=== PATIENT | male | born 1980 | race Caucasian/White ===

== ENCOUNTER 2020-03-02 17:47 | Inpatient (IN) | payer MEDICAID, OTHER ==
[~2020-03-02] VITALS: Ht 165.1 cm; Wt 65.4 kg
[~2020-03-02 17:47] MED LIST: ACET325T14 PO; ONDA4TAB10 PO; ONDA4TAB7 PO; OXYC5TAB3 PO; TRAM-47 PO
--- NOTE | 2020-03-02 18:04 | NUR ---
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
[2020-03-02] MEDS ORDERED: ONDANSETRON 2MG/ML, 2ML ONE (18:08)
[2020-03-02] MEDS ORDERED: LORazepam 2 MG/ML, 1ML ONE (18:09)
[2020-03-02] MEDS ORDERED: FAMOTIDINE 20 MG/2 ML ONE (18:09)
--- NOTE | 2020-03-02 18:14 | NUR ---
MEDICATED PER ENMAR WITH FAMOTIDINE/ADDITIONAL ZOFRAN/1MG ATIVAN (LAST DRINK TYSTER) AND 1L NS (1L LITER OF NS FROM EMS COMPLETE)
--- NOTE | 2020-03-02 18:20 | NUR ---
lab at bedside
[2020-03-02] MEDS ORDERED: MORPHINE SULFATE 4 MG/ML, 1ML ONE ×2 (18:27→18:55)
[2020-03-02] MEDS ORDERED: ONDANSETRON 2MG/ML, 2ML IVPush ONE (18:30)
[2020-03-02] MEDS ORDERED: LORazepam 2 MG/ML, 1ML IVPush ONE (18:30)
[2020-03-02] MEDS ORDERED: SODIUM CHLORIDE 0.9% 1,000ML IVBOLUS ONE ×2 (18:30→19:30)
[2020-03-02] MEDS ORDERED: FAMOTIDINE 20 MG/2 ML IVPush ONE (18:30)
--- NOTE | 2020-03-02 18:30 | NUR ---
Large coffe ground emesis noted-provider made aware lucian (sharon [phone] Medicated per emar for llq/throat pain
[2020-03-02] MEDS: MORPHINE SULFATE 4 MG/ML, 1ML IVPush PRN ×2 (18:35→19:01)
--- NOTE | 2020-03-02 18:47 | NUR ---
Pain/tachypnea not improved with prior medications-provider made aware Repeat fsbs after 1.5 liters remains "high"
[2020-03-02 18:58] LABS: CHLORIDE 65 mmol/L (98-107)
[2020-03-02] MEDS ORDERED: MORPHINE SULFATE 4 MG/ML, 1ML IVPush PRN (19:00)
[2020-03-02 19:03] LABS: BASOPHILS # (AUTO) 0.08 x10^3/uL (0-0.1); BASOPHILS % (AUTO) 1 % (0-1); EOSINOPHILS # (AUTO) 0.01 x10^3/uL (0-0.4); EOSINOPHILS % (AUTO) 0 % (1-7); LYMPHOCYTES # (AUTO) 0.56 x10^3/uL (1-3.4); LYMPHOCYTES % (AUTO) 7 % (22-44); MD SCAN; MEAN CORPUSCULAR VOLUME 89.9 fL (81-97); MONOCYTES # (AUTO) 1.51 x10^3/uL (0.2-0.8); MONOCYTES % (AUTO) 18 % (2-9); NEUTROPHILS # (AUTO) 6.38 x10^3/uL (1.8-6.8); NEUTROPHILS % (AUTO) 75 % (42-75); PLATELET COUNT 155 x10^3/uL (130-400); RED BLOOD COUNT 4.77 x10^6/uL (4.38-5.82); RED CELL DISTRIBUTION WIDTH 14.9 % (9.4-14.8)
--- NOTE | 2020-03-02 19:03 | NUR ---
TASK RN: PT MEDICATED PER MAR FOR PAIN 5 RIGHTS VERIFIED.
--- NOTE | 2020-03-02 19:05 | NUR ---
with reassessment-morphine ineffective-pain remains 03/13 provider made aware
[2020-03-02 19:06] LABS: ANION GAP 42 mmol/L (5-15)
[2020-03-02 19:08] LABS: CALCIUM 6.6 mg/dL (8.5-10.1); CREATININE 3.85 mg/dL (0.7-1.3)
[2020-03-02 19:09] LABS: ALANINE AMINOTRANSFERASE 230 U/L (12-78); ALBUMIN 3.1 g/dL (3.4-5.0); ALKALINE PHOSPHATASE 168 U/L (45-117); BILIRUBIN,TOTAL 2.5 mg/dL (0.2-1.0); TROPONIN I 0.046 ng/mL (0.000-0.045)
--- NOTE | 2020-03-02 19:24 | NUR ---
sodium 112, co2-5, glucose 1513 provider made aware- orders forthcoming
[2020-03-02] MEDS: METOCLOPRAMIDE 5 MG/ML, 2ML IVPush ONE ×2 (19:30→20:33)
[2020-03-02] MEDS ORDERED: LACTATED RINGERS 1,000 ML IVBOLUS ONE (19:30)
--- NOTE | 2020-03-02 19:38 | NUR ---
3L OF NS ADMINISTERED PER EMAR INSULIN GTT ORDERED FROM PHARMACY RADIOLOGY AT BEDSIDE
--- NOTE | 2020-03-02 19:59 | NUR ---
insulin gtt started at 7.1 units/hr (patient weight 71kg-bed weight) verified by Liliana RICHARDS 3l of ns complete, lr administered per emar
[2020-03-02] MEDS: REGULAR INSULIN 100 UNITS in SODIUM CHLORIDE 0.9% 99 ML IV PRN (20:02)
[2020-03-02] MEDS ORDERED: SODIUM CHLORIDE 0.9% 1,000 ML IV ONE (20:12)
[2020-03-02] MEDS ORDERED: METOCLOPRAMIDE 5 MG/ML, 2ML ONE (20:16)
--- NOTE | 2020-03-02 20:49 | NUR ---
when directed on need to void as bladder scan 650ml and has received 4l of fluids patient only able to void 75ml-sample sent provider to be made aware shortly
--- NOTE | 2020-03-02 20:56 | NUR ---
BS REPORT FROM KAYCE RICHARDS. PT CARE TRANSFERRED AT THIS TIME.
--- NOTE | 2020-03-02 21:05 | NUR ---
FSBS RECHECK "HIGH" LAB MADE AWARE OF NEED FOR [facility] ICU HOSPITAL BED ORDERED PATIENT TO BE A HOLD PROVIDER ORDER FOR FERGUSON FOR I/O'S AND INABILITY TO VOID REPORT TO ELLIOTT RICHARDS
[2020-03-02 21:09] LABS: MICROSCOPIC INDICATED
[2020-03-02] MEDS ORDERED: REGULAR INSULIN 100 UNITS in SODIUM CHLORIDE 0.9% 99 ML IV PRN (21:26)
[2020-03-02] MEDS: SODIUM CHLORIDE 0.9% 1,000 ML IV SCH (21:26)
[2020-03-02] MEDS ORDERED: ONDANSETRON 2MG/ML, 2ML IV PRN (21:30)
[2020-03-02] MEDS ORDERED: PHARMACY MAY ADJ FOR RENAL FX MC PRN (21:30)
[2020-03-02] MEDS ORDERED: LACTULOSE 10 GM/15 ML UDC PO PRN (21:30)
[2020-03-02] MEDS ORDERED: LABETALOL 5MG/ML, 20ML IVPush PRN (21:30)
[2020-03-02] MEDS ORDERED: THIAMINE 200 MG in SODIUM CHLORIDE 0.9% 50 ML IV ONE (21:30)
--- NOTE | 2020-03-02 21:37 | NUR ---
FERGUSON PLACED, PT TOLERATED WELL. PT ANOx1 TO SELF AT THIS TIME. PT RESPIRATIONS SLIGHTLY FAST, SLOWED DUE TO PREVIOUS MEDICATION ADMINISTRATION. PT RESTING IN GURNEY, AROUSABLE TO PAIN STIMULI OR LOUD NOISES, PT WILL OPEN EYES AND THEN CLOSE THEM AGAIN AND BRIEFLY RESPOND. PT BLOOD SUGAR ORDERED THROUGH LAB RESULTS WERE TOO HIGH FOR GLUCOMETER. PT VSS AT THIS TIME. JIGNESH DO AT BS FOR EVAL AND POC. WCTM. WAITING FOR CCU BED
[2020-03-02 21:59] LABS: INTERNATIONAL NORMALIZED RATIO 1.36 (0.93-1.1); PROTHROMBIN TIME 14.5 Seconds (9.6-11.5)
[2020-03-02] MEDS ORDERED: CALCIUM GLUCONATE 4.6 MEQ in SODIUM CHLORIDE 0.9% 50 ML IV ONE ×2 (22:00→22:30)
[2020-03-02] MEDS ORDERED: SODIUM BICARB 8.4%, 50ML SYRINGE ONE (22:00)
[2020-03-02] MEDS ORDERED: PANTOPRAZOLE 40 MG IV ONE (22:01)
[2020-03-02] MEDS: SODIUM BICARB 8.4%, 50ML SYRINGE IV ONE ×2 (22:10→23:00)
[2020-03-02] MEDS: PANTOPRAZOLE 40 MG IV IVPush SCH (22:26)
--- NOTE | 2020-03-02 22:48 | NUR ---
RN CONSULTED WITH JIGNESH DELANEY, INSULIN DRIP INCREASED BY 3 UNITS/HOUR DUE TO MINIMAL DROP IN BLOOD SUGAR. SUGAR USED 1210, DRIP CHANGE VERIFIED WITH ASHWIN RICHARDS. US AT BS. PT TOELRATING WELL. WCTM.
[2020-03-02] MEDS: D5%-0.45NACL+KCL 20MEQ 1,000 ML IV SCH (23:00)
[2020-03-02 23:07] LABS: ACETONE, SERUM Large (80mg/dL) (Negative)
--- NOTE | 2020-03-02 23:14 | NUR ---
PT RESTING IN [facility] LAB AT FOR DRAW. PT ANOx4 AT THIS TIME. MORE EASILY WOKEN UP BUT STILL DROWSY. WCTM. WAITING FOR CCU BED.
[2020-03-03] MEDS ORDERED: MORPHINE SULFATE 4 MG/ML, 1ML ONE (00:14)
[2020-03-03 00:22] LABS: ANION GAP 16 mmol/L (5-15); CALCIUM 7.8 mg/dL (8.5-10.1); CHLORIDE 89 mmol/L (98-107); CREATININE 2.77 mg/dL (0.7-1.3)
[2020-03-03 00:26] LABS: TROPONIN I 0.057 ng/mL (0.000-0.045)
[2020-03-03 00:31] LABS: AMPHETAMINE SCREEN, URINE Negative (Negative); BARBITURATE SCREEN, URINE Negative (Negative); BENZODIAZEPINE SCREEN, URINE Negative (Negative); CANNABINOID SCREEN, URINE Negative (Negative); COCAINE SCREEN, URINE Negative (Negative); METHADONE SCREEN, URINE Negative (Negative); OPIATE SCREEN, URINE Positive (Negative)
--- NOTE | 2020-03-03 00:40 | NUR ---
PT MEDICATED PER MAR FOR PAIN. PT NOW RESTING, APPEARS COMFORTABLE. SEIZURE PRECAUTION IN PLACE. VSS, WCTM. WAITING FOR CCU BED.
--- NOTE | 2020-03-03 01:21 | NUR ---
BS REPORT TO NIKKI RICHARDS. PT CONDITION UNCHANGED OTHER THAN PAIN DECREASED.
--- NOTE | 2020-03-03 01:30 | NUR ---
PATIENT RESTING IN BED, TOLERATING INTERVENTIONS WELL. NO NOTED FURTHER NEEDS AT THIS TIME. WILL CONTINUE TO MONITOR. VITAL SIGNS STABLE.
[2020-03-03] MEDS: SODIUM CHLORIDE 0.9% 1,000 ML IV SCH ×4 (01:39→23:35)
--- NOTE | 2020-03-03 01:40 | NUR ---
GLUCOSE DRAWN AND SENT TO LAB.
[2020-03-03] MEDS ORDERED: POTASSIUM CHLORIDE 40 MEQ in SODIUM CHLORIDE 0.9% 500 ML IV ONE (02:00)
[2020-03-03] MEDS ORDERED: CEFTRIAXONE PMX 1GM/50ML 50 ML IV SCH (02:00)
--- NOTE | 2020-03-03 02:30 | NUR ---
INSULIN DRIP TITRATE PER PROTOCOL. VSS, NO NOTED NEEDS AT THIS TIME. WILL CONTINUE TO MONITOR.
[2020-03-03] MEDS: REGULAR INSULIN 100 UNITS in SODIUM CHLORIDE 0.9% 99 ML IV PRN ×2 (02:32→05:49)
--- NOTE | 2020-03-03 03:00 | NUR ---
LABS DRAWN: PATIENT TOLERATED WELL
--- NOTE | 2020-03-03 04:00 | NUR ---
INSULIN DRIP TITRATE PER PROTOCOL. VSS, NO NOTED NEEDS AT THIS TIME. WILL CONTINUE TO MONITOR.
[2020-03-03 04:35] LABS: ALANINE AMINOTRANSFERASE 274 U/L (12-78); ALBUMIN 3.1 g/dL (3.4-5.0); ANION GAP 11 mmol/L (5-15); CALCIUM 7.9 mg/dL (8.5-10.1); CHLORIDE 99 mmol/L (98-107)
[2020-03-03 04:40] LABS: ALKALINE PHOSPHATASE 153 U/L (45-117); BILIRUBIN,TOTAL 2.3 mg/dL (0.2-1.0); CREATININE 2.03 mg/dL (0.7-1.3); TOTAL PROTEIN 6.8 g/dL (6.4-8.2); TROPONIN I 0.057 ng/mL (0.000-0.045)
[2020-03-03 04:41] LABS: MEAN CORPUSCULAR HEMOGLOBIN 26.8 pg (27.5-34.5); MEAN CORPUSCULAR HGB CONC 33.4 g/dL (33.2-36.2); MEAN CORPUSCULAR VOLUME 80.3 fL (81-97); RED BLOOD COUNT 4.86 x10^6/uL (4.38-5.82); RED CELL DISTRIBUTION WIDTH 14.3 % (9.4-14.8)
--- NOTE | 2020-03-03 04:48 | NUR ---
PATIENT ABLE TO HAVE BLOOD GLUCOSE CHECKED VIA GLUCOMETER, BLOOD SUGAR IS BELOW 500 CARMEN. WILL CONTINUE BLOOD GLUCOSE CHECKS HOURLY VIA GLUCOMETER.
--- NOTE | 2020-03-03 04:50 | NUR ---
INSULIN DRIP TITRATE PER PROTOCOL. VSS, NO NOTED NEEDS AT THIS TIME. WILL CONTINUE TO MONITOR.
--- NOTE | 2020-03-03 05:10 | NUR ---
NO CHANGE IN INSULIN DRIP PER PROTOCOL. VSS, NO NOTED NEEDS AT THIS TIME. WILL CONTINUE TO MONITOR.
[2020-03-03] MEDS: D5%-0.45NACL+KCL 20MEQ 1,000 ML IV SCH (05:26)
[2020-03-03] MEDS ORDERED: PANTOPRAZOLE 40 MG IV ONE (06:00)
[2020-03-03] MEDS: PANTOPRAZOLE 40 MG IV IVPush SCH ×2 (06:00→15:55)
--- NOTE | 2020-03-03 06:10 | NUR ---
NO CHANGE IN INSULIN DRIP RATE. PATIENT DENIES ANY NEEDS AT THIS TIME. VITAL SIGNS STABLE. WILL CONTINUE TO MONITOR. IV PROTONIX GIVEN, PATIENT TOLERATED WELL.
[2020-03-03 06:12] LABS: MEAN PLATELET VOLUME 8.4 fL (7.4-10.4); PLATELET COUNT 83 x10^3/uL (130-400)
[2020-03-03 06:14] LABS: MD YES
[2020-03-03 06:19] LABS: BAND#(MANUAL) 0.33 x10^3/uL; BANDS%(MANUAL) 6 % (0-7); LYMPH#(MANUAL) 0.11 x10^3/uL (1-3.4); LYMPHS% (MANUAL) 2 % (22-44); MONOS#(MANUAL) 0.22 x10^3/uL (0.3-2.7); MONOS% (MANUAL) 4 % (2-9); SEG#(MANUAL) 4.84 x10^3/uL (1.8-6.8); SEGS% (MANUAL) 88 % (42-75)
[2020-03-03 06:20] LABS: <PLATELET ESTIMATE> DECREASED; <PLT MORPHOLOGY> NORMAL PLT MORPH; <RBC MORPHOLOGY> NORMAL
--- NOTE | 2020-03-03 06:40 | NUR ---
CALLED MD NAVARRO TO REPORT AM LABS. NO FURTHER ORDERS AT THIS TIME.
--- NOTE | 2020-03-03 06:57 | NUR ---
report given to oncoming rn scooter
[2020-03-03] MEDS ORDERED: POTASSIUM CHLORIDE 20 MEQ TAB.ER.PRT PO ONE (07:00)
[2020-03-03] MEDS ORDERED: INSULIN LISPRO 100 UNITS/ML, PEN SQ-INSULIN SCH (07:00)
--- NOTE | 2020-03-03 07:00 | NUR ---
BEDSIDE REPORT RECEIVED, CARE ASSUMED. PT LAYING ON HOSPITAL BED, SLEEPING, AROUSES TO NAME. SR PER MONITOR. CONT WITH OXYGEN AT 5L NC. NS AT 200MLS/HR AND INSULIN GTT AT 4.1 UNITS/HR INFUSING WITHOUT REDNESS/SWELLING. FERGUSON TO DOWN DRAIN, CLEAR YELLOW URINE. NO NEEDS VERBALIZED AT THIS TIME. AWAITING ROOM ASSIGNMENT.
--- NOTE | 2020-03-03 07:23 | NUR ---
PT REMOVES OXYGEN AT TIMES, DESATS TO 83%. PT COOPERATIVE WITH PLACING O2 BACK ON.
--- NOTE | 2020-03-03 07:31 | NUR ---
NEW ORDERS RECEIVED. PT INSULIN GTT STOPPED. REQUESTED HUMALOG AND LANTUS PENS FROM PHARMACY. REQUEST CLEAR LIQUID DIET FROM DIETARY.
[2020-03-03] MEDS ORDERED: POTASSIUM CHLORIDE 20 MEQ TAB.ER.PRT ONE (07:42)
[2020-03-03] MEDS ORDERED: INSULIN GLARGINE 100 UNITS/ML, PEN SQ-INSULIN SCH (09:00)
--- NOTE | 2020-03-03 09:14 | NUR ---
REPORT TO KAYCE RICHARDS
--- NOTE | 2020-03-03 09:18 | NUR ---
BEDSIDE REPORT FROM LYDIA RN WITH ASSESSMENT PATIENT APPEARS WELL-VSS ON AERIAL INSTALLER DR. THAKUR TO BEDSIDE- VERBAL ORDERS RECEIVED TO REMOVE FERGUSON
[2020-03-03] MEDS ORDERED: LORazepam 2 MG/ML, 1ML IVPush PRN (11:00)
--- NOTE | 2020-03-03 11:19 | NUR ---
With reassessment- patient remains in no acute distress Prior to clear liquid meal tray delivery fsbs rechecked: 288 VSS-updated on poc
[2020-03-03] MEDS: INSULIN LISPRO 100 UNITS/ML, PEN SQ-INSULIN SCH ×3 (11:26→21:35)
--- NOTE | 2020-03-03 11:26 | NUR ---
medicated with 15 units of sq lispro for fsbs of 288. dose verified by scooter cline Provided with lunch meal tray. encouraged to eat
--- NOTE | 2020-03-03 11:36 | NUR ---
[place] catheter removed. urimeter with 100ml of c/y urine in it
--- NOTE | 2020-03-03 11:55 | NUR ---
attempted to wean o2 (on 5l nc) room air sat to 70's with good waveform. o2 adjusted to 3l nc- will cont to monitor family updated on estimated poc
--- NOTE | 2020-03-03 12:10 | NUR ---
to ct scan (head)
--- NOTE | 2020-03-03 12:30 | NUR ---
REPORT CALLED TO FILEMON RICHARDS-MADE AWARE THAT PATIENT HAS NOT VOIDED SINCE CATH REMOVAL FAMILY CALLED TO UPDATE POC (AFTER PERMISSION GRANTED FROM PATIENT)
[2020-03-03 13:05] VITALS: BP 139/91
[2020-03-03 18:23] VITALS: BP 139/87
[2020-03-03] MEDS: INSULIN GLARGINE 100 UNITS/ML, PEN SQ-INSULIN SCH (21:35)
[2020-03-03] MEDS: THIAMINE 200 MG in SODIUM CHLORIDE 0.9% 50 ML IV SCH (21:36)
[2020-03-03] MEDS ORDERED: THIAMINE 100 MG in SODIUM CHLORIDE 0.9% 50 ML IV SCH (22:00)
[2020-03-03] MEDS ORDERED: METOCLOPRAMIDE 5 MG/ML, 2ML IVPush ONE (23:00)
[2020-03-03] MEDS ORDERED: DIPHENHYDRAMINE 50 MG/ML, 1ML IVPush ONE (23:00)
[2020-03-04 00:57] VITALS: BP 133/80
[2020-03-04] MEDS ORDERED: CEFTRIAXONE 1,000 MG IM SCH (03:00)
[2020-03-04 04:04] LABS: ANION GAP 15 mmol/L (5-15); CALCIUM 8.2 mg/dL (8.5-10.1); CHLORIDE 100 mmol/L (98-107); CREATININE 0.76 mg/dL (0.7-1.3)
[2020-03-04 04:07] LABS: MEAN CORPUSCULAR HEMOGLOBIN 26.7 pg (27.5-34.5); MEAN CORPUSCULAR HGB CONC 32.9 g/dL (33.2-36.2); MEAN CORPUSCULAR VOLUME 81.1 fL (81-97); MEAN PLATELET VOLUME 9.9 fL (7.4-10.4); PLATELET COUNT 86 x10^3/uL (130-400); RED BLOOD COUNT 4.49 x10^6/uL (4.38-5.82); RED CELL DISTRIBUTION WIDTH 15.3 % (9.4-14.8)
[2020-03-04] MEDS ORDERED: CEFTRIAXONE PMX 1GM/50ML 50 ML IV SCH (05:00)
[2020-03-04 05:10] LABS: MD YES
[2020-03-04 05:14] LABS: BAND#(MANUAL) 1.08 x10^3/uL; BANDS%(MANUAL) 15 % (0-7); EOS#(MANUAL) 0.14 x10^3/uL (0.0-0.4); EOS% (MANUAL) 2 % (1-7); LYMPH#(MANUAL) 1.44 x10^3/uL (1-3.4); LYMPHS% (MANUAL) 20 % (22-44); METAMYELOCYTES# (MANUAL) 0.14 x10^3/uL (0-0); METAMYELOCYTES% (MANUAL) 2 % (0-1); MONOS#(MANUAL) 0.14 x10^3/uL (0.3-2.7); MONOS% (MANUAL) 2 % (2-9); MYELOCYTES# (MANUAL) 0.07 x10^3/uL (0-0); MYELOCYTES% (MANUAL) 1 % (0-0); REACTIVE LYMPHS # (MANUAL) 0.07 x10^3/uL (0-0); REACTIVE LYMPHS % (MANUAL) 1 % (0-0); SEGS% (MANUAL) 57 % (42-75)
[2020-03-04 05:15] LABS: <PLATELET ESTIMATE> DECREASED; <PLT MORPHOLOGY> NORMAL PLT MORPH; <RBC MORPHOLOGY> NORMAL
[2020-03-04] MEDS: PANTOPRAZOLE 40 MG IV IVPush SCH ×2 (05:24→18:11)
[2020-03-04 06:41] VITALS: BP 128/76
[2020-03-04] MEDS: INSULIN LISPRO 100 UNITS/ML, PEN SQ-INSULIN SCH ×4 (07:00→21:42)
[2020-03-04] MEDS: SODIUM CHLORIDE 0.9% 1,000 ML IV SCH ×2 (08:00→21:43)
[2020-03-04] MEDS: INSULIN GLARGINE 100 UNITS/ML, PEN SQ-INSULIN SCH ×2 (09:00→21:42)
[2020-03-04] MEDS: POTASSIUM CHLORIDE 20 MEQ TAB.ER.PRT PO SCH (11:22)
[2020-03-04] MEDS: AMPICILLIN/SULBACTAM 3 GM in SODIUM CHLORIDE 0.9% 100 ML IV SCH ×3 (11:23→21:42)
[2020-03-04 13:50] VITALS: BP 134/79
[2020-03-04] MEDS: OXYcodone/APAP 5/325MG TABLET PO PRN (21:43)
[2020-03-04] MEDS: THIAMINE 200 MG in SODIUM CHLORIDE 0.9% 50 ML IV SCH (22:21)
[2020-03-04 22:38] VITALS: BP 120/78
[2020-03-05 01:49] VITALS: BP 115/73
[2020-03-05] MEDS: AMPICILLIN/SULBACTAM 3 GM in SODIUM CHLORIDE 0.9% 100 ML IV SCH ×3 (03:42→18:03)
[2020-03-05] MEDS: PANTOPRAZOLE 40 MG IV IVPush SCH ×2 (06:04→16:42)
[2020-03-05] MEDS: SODIUM CHLORIDE 0.9% 1,000 ML IV SCH ×2 (06:05→18:23)
[2020-03-05 06:49] VITALS: BP 106/69
[2020-03-05] MEDS: INSULIN LISPRO 100 UNITS/ML, PEN SQ-INSULIN SCH ×4 (07:00→20:27)
[2020-03-05] MEDS ORDERED: SINCALIDE (KINEVAC) 5 MCG ONE ×2 (08:31→08:32)
[2020-03-05] MEDS: POTASSIUM CHLORIDE 20 MEQ TAB.ER.PRT PO SCH (09:38)
[2020-03-05] MEDS: INSULIN GLARGINE 100 UNITS/ML, PEN SQ-INSULIN SCH ×2 (09:39→20:26)
[2020-03-05 14:03] VITALS: BP 113/69
[2020-03-05] MEDS: OXYcodone/APAP 5/325MG TABLET PO PRN ×2 (15:42→20:11)
[2020-03-05 19:51] VITALS: BP 115/74
[2020-03-05] MEDS: THIAMINE 200 MG in SODIUM CHLORIDE 0.9% 50 ML IV SCH (22:58)
[2020-03-06] MEDS: AMPICILLIN/SULBACTAM 3 GM in SODIUM CHLORIDE 0.9% 100 ML IV SCH ×4 (00:38→17:41)
[2020-03-06] MEDS: OXYcodone/APAP 5/325MG TABLET PO PRN ×5 (00:38→23:08)
[2020-03-06 00:47] VITALS: BP 121/80
[2020-03-06] MEDS: SODIUM CHLORIDE 0.9% 1,000 ML IV SCH ×2 (03:25→12:30)
[2020-03-06 04:50] LABS: BASOPHILS # (AUTO) 0.02 x10^3/uL (0-0.1); BASOPHILS % (AUTO) 0 % (0-1); EOSINOPHILS # (AUTO) 0.22 x10^3/uL (0-0.4); EOSINOPHILS % (AUTO) 4 % (1-7); LYMPHOCYTES # (AUTO) 1.42 x10^3/uL (1-3.4); LYMPHOCYTES % (AUTO) 25 % (22-44); MD NO; MEAN CORPUSCULAR HEMOGLOBIN 26.7 pg (27.5-34.5); MEAN CORPUSCULAR HGB CONC 32.9 g/dL (33.2-36.2); MEAN CORPUSCULAR VOLUME 81.2 fL (81-97); MEAN PLATELET VOLUME 8.3 fL (7.4-10.4); MONOCYTES # (AUTO) 0.57 x10^3/uL (0.2-0.8); MONOCYTES % (AUTO) 10 % (2-9); NEUTROPHILS # (AUTO) 3.44 x10^3/uL (1.8-6.8); NEUTROPHILS % (AUTO) 61 % (42-75); PLATELET COUNT 154 x10^3/uL (130-400); RED BLOOD COUNT 4.27 x10^6/uL (4.38-5.82); RED CELL DISTRIBUTION WIDTH 15.5 % (9.4-14.8)
[2020-03-06 04:56] LABS: ANION GAP 9 mmol/L (5-15); CALCIUM 7.7 mg/dL (8.5-10.1); CHLORIDE 105 mmol/L (98-107); CREATININE 0.65 mg/dL (0.7-1.3)
[2020-03-06] MEDS: PANTOPRAZOLE 40 MG IV IVPush SCH ×2 (06:10→17:41)
[2020-03-06 06:36] VITALS: BP 120/79
[2020-03-06] MEDS: POTASSIUM CHLORIDE 20 MEQ TAB.ER.PRT PO SCH (08:16)
[2020-03-06] MEDS: INSULIN LISPRO 100 UNITS/ML, PEN SQ-INSULIN SCH ×4 (09:41→21:37)
[2020-03-06] MEDS: INSULIN GLARGINE 100 UNITS/ML, PEN SQ-INSULIN SCH ×2 (09:41→21:37)
[2020-03-06 12:25] VITALS: BP 120/80
[2020-03-06 21:02] VITALS: BP 120/77
[2020-03-06] MEDS: THIAMINE 200 MG in SODIUM CHLORIDE 0.9% 50 ML IV SCH (21:38)
[2020-03-06 23:56] VITALS: BP 122/80
[2020-03-07] MEDS: AMPICILLIN/SULBACTAM 3 GM in SODIUM CHLORIDE 0.9% 100 ML IV SCH ×4 (00:06→19:40)
[2020-03-07] MEDS: OXYcodone/APAP 5/325MG TABLET PO PRN ×4 (03:45→22:39)
[2020-03-07 06:08] LABS: BASOPHILS # (AUTO) 0.02 x10^3/uL (0-0.1); BASOPHILS % (AUTO) 1 % (0-1); EOSINOPHILS # (AUTO) 0.15 x10^3/uL (0-0.4); EOSINOPHILS % (AUTO) 3 % (1-7); LYMPHOCYTES % (AUTO) 28 % (22-44); MD NO; MEAN CORPUSCULAR HEMOGLOBIN 26.7 pg (27.5-34.5); MEAN CORPUSCULAR VOLUME 80.9 fL (81-97); MEAN PLATELET VOLUME 7.9 fL (7.4-10.4); MONOCYTES # (AUTO) 0.85 x10^3/uL (0.2-0.8); MONOCYTES % (AUTO) 17 % (2-9); NEUTROPHILS # (AUTO) 2.67 x10^3/uL (1.8-6.8); NEUTROPHILS % (AUTO) 52 % (42-75); PLATELET COUNT 204 x10^3/uL (130-400); RED BLOOD COUNT 4.43 x10^6/uL (4.38-5.82); RED CELL DISTRIBUTION WIDTH 15.5 % (9.4-14.8)
[2020-03-07 06:29] LABS: HCT (SEDRATE) 35.9 % (39.2-51.8)
[2020-03-07] MEDS: PANTOPRAZOLE 40 MG IV IVPush SCH ×2 (06:32→16:48)
[2020-03-07 06:45] LABS: ANION GAP 8 mmol/L (5-15); CALCIUM 8.3 mg/dL (8.5-10.1); CHLORIDE 102 mmol/L (98-107); CREATININE 0.71 mg/dL (0.7-1.3)
[2020-03-07] MEDS ORDERED: POTASSIUM CHLORIDE 40 MEQ in SODIUM CHLORIDE 0.9% 500 ML IV ONE (07:00)
[2020-03-07 07:03] VITALS: BP 119/78
[2020-03-07] MEDS: POTASSIUM CHLORIDE 20 MEQ TAB.ER.PRT PO SCH (08:21)
[2020-03-07] MEDS: INSULIN LISPRO 100 UNITS/ML, PEN SQ-INSULIN SCH ×4 (08:23→19:56)
[2020-03-07] MEDS: INSULIN GLARGINE 100 UNITS/ML, PEN SQ-INSULIN SCH ×2 (08:23→19:56)
[2020-03-07 13:05] VITALS: BP 119/79
[2020-03-07] MEDS ORDERED: METF-649 PO (17:54)
[2020-03-07] MEDS ORDERED: GLIP5TAB10 PO (17:54)
[2020-03-07 19:33] VITALS: BP 121/75
[2020-03-07] MEDS: THIAMINE 200 MG in SODIUM CHLORIDE 0.9% 50 ML IV SCH (22:39)
[2020-03-08] MEDS: AMPICILLIN/SULBACTAM 3 GM in SODIUM CHLORIDE 0.9% 100 ML IV SCH ×3 (01:47→14:30)
[2020-03-08 01:56] VITALS: BP 106/68
[2020-03-08] MEDS: OXYcodone/APAP 5/325MG TABLET PO PRN ×2 (03:21→10:41)
[2020-03-08 05:21] LABS: BASOPHILS # (AUTO) 0.04 x10^3/uL (0-0.1); BASOPHILS % (AUTO) 1 % (0-1); EOSINOPHILS # (AUTO) 0.16 x10^3/uL (0-0.4); EOSINOPHILS % (AUTO) 3 % (1-7); LYMPHOCYTES # (AUTO) 1.47 x10^3/uL (1-3.4); LYMPHOCYTES % (AUTO) 31 % (22-44); MD NO; MEAN CORPUSCULAR HEMOGLOBIN 26.6 pg (27.5-34.5); MEAN CORPUSCULAR HGB CONC 32.6 g/dL (33.2-36.2); MEAN CORPUSCULAR VOLUME 81.6 fL (81-97); MEAN PLATELET VOLUME 7.9 fL (7.4-10.4); MONOCYTES % (AUTO) 19 % (2-9); NEUTROPHILS # (AUTO) 2.26 x10^3/uL (1.8-6.8); NEUTROPHILS % (AUTO) 47 % (42-75); PLATELET COUNT 290 x10^3/uL (130-400); RED BLOOD COUNT 4.47 x10^6/uL (4.38-5.82); RED CELL DISTRIBUTION WIDTH 16.2 % (9.4-14.8)
[2020-03-08 05:30] LABS: ANION GAP 7 mmol/L (5-15); CALCIUM 8.7 mg/dL (8.5-10.1); CHLORIDE 106 mmol/L (98-107)
[2020-03-08] MEDS ORDERED: PANTOPRAZOLE 40MG TABLET PO SCH (06:00)
[2020-03-08] MEDS: INSULIN LISPRO 100 UNITS/ML, PEN SQ-INSULIN SCH ×2 (07:00→12:38)
[2020-03-08 07:29] VITALS: BP 97/60
[2020-03-08] MEDS ORDERED: POTASSIUM CHLORIDE 40 MEQ in SODIUM CHLORIDE 0.9% 500 ML IV ONE (09:00)
[2020-03-08] MEDS: INSULIN GLARGINE 100 UNITS/ML, PEN SQ-INSULIN SCH (10:41)
[2020-03-08] MEDS: POTASSIUM CHLORIDE 20 MEQ TAB.ER.PRT PO SCH (10:41)
[2020-03-08] MEDS ORDERED: FOLI-17 PO (11:08)
[2020-03-08] MEDS ORDERED: THIA100T52 PO (11:08)
[2020-03-08] MEDS ORDERED: PANT40TA3 PO (11:08)
[2020-03-08] MEDS ORDERED: CEFD300C37 PO (11:09)
[2020-03-08 15:10] VITALS: BP 116/71
== END 2020-03-08 17:30 | disposition home or self-care (01) | DRG 637 ==
LOC: ED 20:05 → EDIP 20:13 → ED 20:40 → 3N 03-03 13:27 → DCLOUNGE 03-08 17:10
PROVIDERS: ADMIT Family Medicine; ATTEND Hospitalist
DX: E10.10 Type 1 diabetes mellitus with ketoacidosis without coma (principal); I21.4 Non-ST elevation (NSTEMI) myocardial infarction; K85.20 Alcohol induced acute pancreatitis without necrosis or infection; G93.41 Metabolic encephalopathy; J96.01 Acute respiratory failure with hypoxia; N17.0 Acute kidney failure with tubular necrosis; K92.0 Hematemesis; E87.1 Hypo-osmolality and hyponatremia; F10.239 Alcohol dependence with withdrawal, unspecified; K86.1 Other chronic pancreatitis; M62.82 Rhabdomyolysis; D50.9 Iron deficiency anemia, unspecified; E83.51 Hypocalcemia; E86.0 Dehydration; E87.5 Hyperkalemia; K29.20 Alcoholic gastritis without bleeding; Z91.14 Patient's other noncompliance with medication regimen
CPT/HCPCS: 36415; 36600; 84145; J3490; 70450; 71045; 76700; 78227; 80048; 80053; 80074; 80307; 81001; 82010; 82140; 82330; 82550; 82728; 82803; 82947; 82962; 83036; 83540; 83550; 83605; 83690; 83735; 84100; 84484; 85014; 85018; 85025; 85610; 85651; 85730; 86140; 87040; 87086; 87147; 87181; 93005; G0378; J0295; J0610; J0696; J1815; J2405; J3411; J3480; A9537; C9113; J1200; J2060; J2270; J2765; J2805; J7030; J7040; J7120

== ENCOUNTER 2020-04-13 01:54 | Inpatient (IN) | payer MEDICAID ==
[~2020-04-13] VITALS: Ht 165.1 cm; Wt 66.9 kg
[~2020-04-13 01:54] MED LIST changes: +CEFD300C37 PO; +FOLI-17 PO; +GLIP5TAB10 PO; +METF-649 PO; +PANT40TA3 PO; +THIA100T52 PO
[2020-04-13] MEDS ORDERED: SODIUM CHLORIDE 0.9% 1,000ML IVBOLUS ONE ×3 (02:30→04:00)
[2020-04-13] MEDS ORDERED: SODIUM CHLORIDE FLUSH 10ML SYR IVF ONE (02:30)
[2020-04-13] MEDS ORDERED: ONDANSETRON 2MG/ML, 2ML IVPush ONE (02:30)
[2020-04-13 02:46] LABS: MEAN CORPUSCULAR HEMOGLOBIN 26.6 pg (27.5-34.5); MEAN CORPUSCULAR HGB CONC 31.3 g/dL (33.2-36.2); MEAN CORPUSCULAR VOLUME 84.8 fL (81-97); MEAN PLATELET VOLUME 11.3 fL (7.4-10.4); PLATELET COUNT 472 x10^3/uL (130-400); RED CELL DISTRIBUTION WIDTH 17.1 % (9.4-14.8)
--- NOTE | 2020-04-13 02:48 | NUR ---
INTURPRETER IN USE. PT UPDATED IN POC. IV ACCESS OBTAINED. PT LAYING IN BED, CONNECTED TO BABY DOCTOR, BP AND O2 MONITORS.
[2020-04-13] MEDS ORDERED: ONDANSETRON 2MG/ML, 2ML ONE (02:56)
[2020-04-13 03:20] LABS: TROPONIN I < 0.015 ng/mL (0.000-0.045)
[2020-04-13 03:28] LABS: ALANINE AMINOTRANSFERASE 25 U/L (12-78); ANION GAP 33 mmol/L (5-15); CALCIUM 8.3 mg/dL (8.5-10.1); CHLORIDE 94 mmol/L (98-107); CREATININE 2.81 mg/dL (0.7-1.3)
[2020-04-13 03:30] LABS: BASOPHILS # (AUTO) 0.04 x10^3/uL (0-0.1); BASOPHILS % (AUTO) 0 % (0-1); EOSINOPHILS # (AUTO) 0.01 x10^3/uL (0-0.4); EOSINOPHILS % (AUTO) 0 % (1-7); LYMPHOCYTES # (AUTO) 0.81 x10^3/uL (1-3.4); LYMPHOCYTES % (AUTO) 5 % (22-44); MD SCAN; MONOCYTES # (AUTO) 0.61 x10^3/uL (0.2-0.8); MONOCYTES % (AUTO) 4 % (2-9); NEUTROPHILS # (AUTO) 14.82 x10^3/uL (1.8-6.8); NEUTROPHILS % (AUTO) 91 % (42-75)
[2020-04-13 03:31] LABS: ALKALINE PHOSPHATASE 210 U/L (45-117); BILIRUBIN,TOTAL 0.6 mg/dL (0.2-1.0); TOTAL PROTEIN 9.3 g/dL (6.4-8.2)
[2020-04-13 03:35] LABS: ACETONE, SERUM Large (80mg/dL) (Negative)
--- NOTE | 2020-04-13 03:41 | NUR ---
PT LAYING IN BED, CALL LIGHT IN REACH, RESPIRATIONS HAVE SLOWED, PT ASKING FOR ICE CHIPS, WILL ASK PROVIDER AND CONTINUE TO MONITOR.
[2020-04-13] MEDS ORDERED: REGULAR INSULIN 100 UNITS in SODIUM CHLORIDE 0.9% 99 ML IV PRN (03:42)
[2020-04-13] MEDS: D5%-0.45NACL+KCL 20MEQ 1,000 ML IV SCH ×3 (03:54→21:04)
[2020-04-13] MEDS: SODIUM CHLORIDE 0.9% 1,000 ML IV SCH ×5 (03:54→23:54)
[2020-04-13] MEDS ORDERED: LACTATED RINGERS 1,000 ML IVBOLUS ONE (04:00)
[2020-04-13] MEDS ORDERED: ACETAMINOPHEN 325 MG TABLET PO PRN (04:00)
[2020-04-13] MEDS ORDERED: ONDANSETRON 2MG/ML, 2ML IVPush PRN ×2 (04:00)
[2020-04-13] MEDS ORDERED: MORPHINE SULFATE 4 MG/ML, 1ML IVPush PRN ×2 (04:00)
[2020-04-13] MEDS ORDERED: GLUCAGON 1 MG IM PRN (04:00)
[2020-04-13] MEDS ORDERED: DEXTROSE 4 GM TAB.CHEW PO PRN (04:00)
[2020-04-13] MEDS ORDERED: DOCUSATE 100 MG CAPSULE PO PRN (04:00)
[2020-04-13] MEDS ORDERED: DEXTROSE 50%, 50ML SYRINGE IVPush PRN (04:00)
[2020-04-13] MEDS ORDERED: morphine SULFATE 10 MG/ML, 1ML IVPush PRN (04:00)
[2020-04-13] MEDS ORDERED: hydrALAzine 20 MG/ML, 1ML IVPush PRN (04:00)
[2020-04-13] MEDS ORDERED: MORPHINE SULFATE 4 MG/ML, 1ML ONE (04:01)
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
--- NOTE | 2020-04-13 04:43 | NUR ---
PT STATE'S HE'S FEELING "A LITTLE BETTER." GIVEN ICE CHIPS, ALL NEEDS MET AT THIS TIME.
[2020-04-13] MEDS ORDERED: METRONIDAZOLE PMX 500MG/100ML 100 ML IVPB SCH (05:00)
[2020-04-13] MEDS ORDERED: CEFTRIAXONE PMX 1GM/50ML 50 ML IVPB SCH (05:00)
[2020-04-13] MEDS: HEPARIN 5,000 UNITS/ML, 1ML SQ SCH ×3 (05:27→21:05)
[2020-04-13 05:28] VITALS: BP 154/79
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
[2020-04-13 07:49] LABS: ANION GAP 26 mmol/L (5-15); CALCIUM 7.7 mg/dL (8.5-10.1); CHLORIDE 110 mmol/L (98-107); CREATININE 2.24 mg/dL (0.7-1.3)
[2020-04-13] MEDS ORDERED: POTASSIUM CHLORIDE 20 MEQ TAB.ER.PRT PO ONE ×2 (08:00→14:30)
[2020-04-13] MEDS: FOLIC ACID 1 MG TABLET PO SCH (08:12)
[2020-04-13] MEDS: SODIUM CHLORIDE FLUSH 10ML SYR IVF SCH ×2 (08:12→21:00)
[2020-04-13] MEDS: THIAMINE 100MG TABLET PO SCH (08:12)
[2020-04-13] MEDS ORDERED: FAMOTIDINE 20 MG/2 ML IVPush SCH ×2 (09:00→21:00)
[2020-04-13] MEDS: REGULAR INSULIN 100 UNITS in SODIUM CHLORIDE 0.9% 99 ML IV PRN ×2 (11:28→21:16)
[2020-04-13 12:19] LABS: ANION GAP 23 mmol/L (5-15); CALCIUM 8.5 mg/dL (8.5-10.1); CHLORIDE 115 mmol/L (98-107)
[2020-04-13 12:21] LABS: CREATININE 1.87 mg/dL (0.7-1.3)
[2020-04-13 12:37] LABS: MICROSCOPIC INDICATED
[2020-04-13 15:59] LABS: ANION GAP 12 mmol/L (5-15); CALCIUM 8.3 mg/dL (8.5-10.1); CHLORIDE 117 mmol/L (98-107); CREATININE 1.52 mg/dL (0.7-1.3)
[2020-04-13] MEDS ORDERED: POTASSIUM CHLORIDE 10% 40 MEQ/30 ML UDC PO ONE (17:30)
[2020-04-13 19:44] LABS: ANION GAP 12 mmol/L (5-15); CALCIUM 8.2 mg/dL (8.5-10.1); CHLORIDE 118 mmol/L (98-107); CREATININE 1.54 mg/dL (0.7-1.3)
[2020-04-13] MEDS: TRAZODONE 50MG TABLET PO PRN (21:15)
[2020-04-13 23:55] LABS: ANION GAP 6 mmol/L (5-15); CALCIUM 8.3 mg/dL (8.5-10.1); CHLORIDE 118 mmol/L (98-107)
[2020-04-14 04:00] VITALS: BP 129/69
[2020-04-14] MEDS: SODIUM CHLORIDE 0.9% 1,000 ML IV SCH (04:54)
[2020-04-14] MEDS: D5%-0.45NACL+KCL 20MEQ 1,000 ML IV SCH (05:07)
[2020-04-14] MEDS: HEPARIN 5,000 UNITS/ML, 1ML SQ SCH ×3 (05:08→21:13)
[2020-04-14 05:58] LABS: CHLORIDE 115 mmol/L (98-107)
[2020-04-14 05:59] LABS: BASOPHILS # (AUTO) 0.01 x10^3/uL (0-0.1); BASOPHILS % (AUTO) 0 % (0-1); EOSINOPHILS # (AUTO) 0.14 x10^3/uL (0-0.4); EOSINOPHILS % (AUTO) 2 % (1-7); LYMPHOCYTES # (AUTO) 1.28 x10^3/uL (1-3.4); LYMPHOCYTES % (AUTO) 17 % (22-44); MD NO; MEAN CORPUSCULAR HEMOGLOBIN 26.6 pg (27.5-34.5); MEAN CORPUSCULAR HGB CONC 32.4 g/dL (33.2-36.2); MEAN PLATELET VOLUME 9.8 fL (7.4-10.4); MONOCYTES # (AUTO) 0.61 x10^3/uL (0.2-0.8); MONOCYTES % (AUTO) 8 % (2-9); NEUTROPHILS # (AUTO) 5.56 x10^3/uL (1.8-6.8); NEUTROPHILS % (AUTO) 73 % (42-75); PLATELET COUNT 217 x10^3/uL (130-400)
[2020-04-14 06:01] LABS: ANION GAP 8 mmol/L (5-15); CALCIUM 8.2 mg/dL (8.5-10.1); CREATININE 1.17 mg/dL (0.7-1.3)
[2020-04-14] MEDS ORDERED: POTASSIUM CHLORIDE 20 MEQ TAB.ER.PRT ONE (06:22)
[2020-04-14] MEDS ORDERED: INSULIN LISPRO 100 UNITS/ML, PEN ONE (06:23)
[2020-04-14] MEDS ORDERED: INSULIN GLARGINE 100 UNITS/ML, PEN ONE (06:23)
[2020-04-14] MEDS ORDERED: POTASSIUM CHLORIDE 20 MEQ TAB.ER.PRT PO ONE (06:30)
[2020-04-14] MEDS: INSULIN LISPRO 100 UNITS/ML, PEN SQ-INSULIN SCH ×4 (07:00→21:22)
[2020-04-14] MEDS: FOLIC ACID 1 MG TABLET PO SCH (07:23)
[2020-04-14] MEDS: THIAMINE 100MG TABLET PO SCH (07:23)
[2020-04-14] MEDS: SODIUM CHLORIDE FLUSH 10ML SYR IVF SCH ×2 (07:24→21:12)
[2020-04-14] MEDS ORDERED: INSULIN GLARGINE 100 UNITS/ML, PEN SQ-INSULIN SCH (09:00)
[2020-04-14 11:43] VITALS: BP 125/76
[2020-04-14] MEDS: TRAZODONE 50MG TABLET PO PRN (21:12)
[2020-04-14] MEDS: INSULIN GLARGINE 100 UNITS/ML, PEN SQ-INSULIN SCH (21:20)
[2020-04-15 00:09] VITALS: BP 130/76
[2020-04-15] MEDS: HEPARIN 5,000 UNITS/ML, 1ML SQ SCH ×3 (03:56→22:12)
[2020-04-15] MEDS: TRAZODONE 50MG TABLET PO PRN (03:57)
[2020-04-15] MEDS: CALCIUM CARBONATE 500 MG TAB.CHEW PO PRN ×2 (04:03→11:27)
[2020-04-15 05:51] LABS: CHLORIDE 104 mmol/L (98-107)
[2020-04-15 06:08] LABS: ANION GAP 11 mmol/L (5-15); CALCIUM 8.6 mg/dL (8.5-10.1); CREATININE 0.74 mg/dL (0.7-1.3)
[2020-04-15] MEDS: THIAMINE 100MG TABLET PO SCH (07:09)
[2020-04-15] MEDS: FOLIC ACID 1 MG TABLET PO SCH (07:09)
[2020-04-15] MEDS: INSULIN GLARGINE 100 UNITS/ML, PEN SQ-INSULIN SCH ×2 (07:10→22:11)
[2020-04-15] MEDS: SODIUM CHLORIDE FLUSH 10ML SYR IVF SCH ×2 (07:11→22:12)
[2020-04-15] MEDS: INSULIN LISPRO 100 UNITS/ML, PEN SQ-INSULIN SCH ×4 (07:11→22:11)
[2020-04-15 08:57] VITALS: BP 115/71
[2020-04-15] MEDS ORDERED: POTASSIUM CHLORIDE 20 MEQ TAB.ER.PRT PO ONE ×2 (10:00→17:00)
[2020-04-15 13:21] VITALS: BP 116/70
[2020-04-15] MEDS: PANTOPRAZOLE 20MG TABLET PO SCH (16:17)
[2020-04-15 19:01] VITALS: BP 109/70
[2020-04-16] MEDS: CALCIUM CARBONATE 500 MG TAB.CHEW PO PRN (00:42)
[2020-04-16] MEDS: TRAZODONE 50MG TABLET PO PRN (00:42)
[2020-04-16 03:30] VITALS: BP 105/64
[2020-04-16 05:42] LABS: CALCIUM 8.3 mg/dL (8.5-10.1); CHLORIDE 103 mmol/L (98-107)
[2020-04-16 05:44] LABS: ANION GAP 7 mmol/L (5-15); CREATININE 0.71 mg/dL (0.7-1.3)
[2020-04-16] MEDS: PANTOPRAZOLE 20MG TABLET PO SCH ×2 (05:59→16:28)
[2020-04-16] MEDS: HEPARIN 5,000 UNITS/ML, 1ML SQ SCH ×3 (06:00→22:59)
[2020-04-16] MEDS ORDERED: POTASSIUM CHLORIDE 20 MEQ TAB.ER.PRT PO ONE (06:30)
[2020-04-16 07:12] VITALS: BP 115/76
[2020-04-16] MEDS: AMOXICILLIN/CLAV 875-125MG TABLET PO SCH ×2 (08:17→22:59)
[2020-04-16] MEDS: SODIUM CHLORIDE FLUSH 10ML SYR IVF SCH ×2 (08:17→22:59)
[2020-04-16] MEDS: FOLIC ACID 1 MG TABLET PO SCH (08:17)
[2020-04-16] MEDS: THIAMINE 100MG TABLET PO SCH (08:17)
[2020-04-16] MEDS: INSULIN LISPRO 100 UNITS/ML, PEN SQ-INSULIN SCH ×4 (08:17→23:00)
[2020-04-16] MEDS: INSULIN GLARGINE 100 UNITS/ML, PEN SQ-INSULIN SCH ×2 (08:30→23:01)
[2020-04-16 13:38] VITALS: BP 100/68
[2020-04-16 20:11] VITALS: BP 115/75
[2020-04-17 02:33] VITALS: BP 115/78
[2020-04-17] MEDS: TRAZODONE 50MG TABLET PO PRN (03:04)
[2020-04-17 06:22] LABS: CHLORIDE 104 mmol/L (98-107)
[2020-04-17] MEDS: PANTOPRAZOLE 20MG TABLET PO SCH (06:25)
[2020-04-17 06:27] LABS: ANION GAP 8 mmol/L (5-15); CALCIUM 9.1 mg/dL (8.5-10.1); CREATININE 0.69 mg/dL (0.7-1.3)
[2020-04-17 06:40] VITALS: BP 104/67
[2020-04-17] MEDS ORDERED: INSU100I11 SQ-INSULIN (09:33)
[2020-04-17] MEDS ORDERED: AMOX1TAB12 PO (09:33)
[2020-04-17] MEDS ORDERED: INSU100I13 SQ-INSULIN (09:33)
[2020-04-17] MEDS: AMOXICILLIN/CLAV 875-125MG TABLET PO SCH (09:48)
[2020-04-17] MEDS: THIAMINE 100MG TABLET PO SCH (09:48)
[2020-04-17] MEDS: FOLIC ACID 1 MG TABLET PO SCH (09:48)
[2020-04-17] MEDS: INSULIN LISPRO 100 UNITS/ML, PEN SQ-INSULIN SCH ×2 (09:57→12:34)
[2020-04-17] MEDS: HEPARIN 5,000 UNITS/ML, 1ML SQ SCH (09:58)
[2020-04-17] MEDS: INSULIN GLARGINE 100 UNITS/ML, PEN SQ-INSULIN SCH (09:58)
[2020-04-17] MEDS: SODIUM CHLORIDE FLUSH 10ML SYR IVF SCH (10:01)
== END 2020-04-17 13:20 | disposition home or self-care (01) | DRG 637 ==
LOC: ED 03:12 → EDIP 03:55 → CCU 04:49 → 3N 04-14 10:42 → DCLOUNGE 04-17 13:13
PROVIDERS: ADMIT Student in an Organized Health Care Education/Training Program; ATTEND Hospitalist
DX: E10.10 Type 1 diabetes mellitus with ketoacidosis without coma (principal); N17.0 Acute kidney failure with tubular necrosis; E87.0 Hyperosmolality and hypernatremia; E87.1 Hypo-osmolality and hyponatremia; R65.10 Systemic inflammatory response syndrome (SIRS) of non-infectious origin without acute organ dysfunction; D64.9 Anemia, unspecified; E86.0 Dehydration; E86.1 Hypovolemia; E87.6 Hypokalemia; F10.21 Alcohol dependence, in remission; I25.2 Old myocardial infarction; K08.89 Other specified disorders of teeth and supporting structures; Z87.11 Personal history of peptic ulcer disease; Z79.4 Long term (current) use of insulin; Y90.9 Presence of alcohol in blood, level not specified
CPT/HCPCS: 36415; J3490; 71045; 80048; 80053; 80307; 81001; 82010; 82803; 82962; 83036; 83690; 83735; 84484; 85025; 87081; 93005; G0378; J0696; J1644; J1815; J2405; J2270; J3480; J7030

== ENCOUNTER 2020-11-21 03:01 | Emergency (ER) | payer MEDICAID ==
[~2020-11-21] VITALS: Ht 165.1 cm; Wt 62.9 kg
[~2020-11-21 03:01] MED LIST changes: +AMOX1TAB12 PO; -FOLI-17 PO; +FOLI1TAB32 PO; +INSU100I11 SQ-INSULIN; +INSU100I13 SQ-INSULIN; -METF-649 PO; +METF-734 PO; -OXYC5TAB3 PO; +OXYC5TAB98 PO
[2020-11-21 03:07] VITALS: BP 127/77
[2020-11-21] MEDS ORDERED: FAMOTIDINE 20 MG TABLET PO ONE (05:00)
[2020-11-21] MEDS ORDERED: FAMOTIDINE 20 MG TABLET ONE (05:02)
--- NOTE | 2020-11-21 05:08 | NUR ---
PT HAS ALL OVER BODY RASH X2 DAYS FOR UNKOWN REASON. PT RESTING IN BED. PT ON MONITOR WITH VSS. PT MEDICATED PER MAR. PT DENIED ANY CURRENT NEEDS OR WANTS.
== END 2020-11-21 05:51 | disposition home or self-care (01) ==
LOC: ED 04:43
DX: L50.0 Allergic urticaria (principal); E11.65 Type 2 diabetes mellitus with hyperglycemia; E11.10 Type 2 diabetes mellitus with ketoacidosis without coma
CPT/HCPCS: 99284; J7512; Q0177